=== PATIENT | male | born 1945 | race Caucasian/White ===

== ENCOUNTER → 2021-06-27 | Outpatient (CLI) | payer OTHER, MEDICARE ==
[~2021-06-27] VITALS: Ht 180.3 cm; Wt 86.2 kg
[~2021-06-27] MED LIST: ADVIL200 M3 PO; AMBIEN 5 MG TABL5 M1 PO; ANCEF 1GM1 GM/50 M1 IVPB; ATORVASTATIN CA40 MG PO; CARVEDILOL25 MG PO; COREG6.25 MG PO; COUMADIN 2 MG TA2 M1 PO; COZAAR 25 MG TA25 M2 PO; GLIPIZIDE ER10 MG PO; GLIPIZIDE ER5 MG PO; KEFLEX500 MG PO; LASIX 20 MG TAB20 MG PO; LEVEMIR SUBQ; NOVOLOG100 UNIT/1 SUBQ; ONDANSETRON HCL4 M2 PO; POTASSIUM20 PO; PRINIVIL5 MG PO; PROTONIX40 M1 PO; SODIUM CHLORID IV; SODIUM CHLORIDE50 M1 IVPB; SPIRONOLACTONE25 M1 PO; TEARS NATURALE1 EACH OPHTHALMIC; TYLENOL325 MG PO; ULTRAM 50MG TAB50 MG PO; XARELTO20 MG PO
[2021-06-27 09:52] LABS: CALCIUM 8.4 mg/dL (8.5-10.1); CREATININE 1.2 mg/dL (0.7-1.3); POTASSIUM 4.6 mmol/L (3.5-5.1)
[2021-06-27 10:08] VITALS: BP 135/90
--- NOTE | 2021-06-27 12:36 | EKG ---
[place] [address] [facility] [employer] [place] [address] ELECTROCARDIOGRAM REPORT Name: LAC DU FLAMBEAU,TUYET Lorenzo Room #: REG [facility]#: [id number] Admission: 06/27/21 Attend Phys: Antoine Javed MD Discharge: Date of : 43 Report #: [id number] [facility] Test Date: 2021-06-27 Test Time: 09:41:34 Pat Name: TUYET VAN Department: Room: Gender: M Certified Phlebotomist: ASHLEY : 1945 Requested By: Antoine Javed Order Number: [id number] : Nick Nava Measurements Intervals [place] Rate: 71 P: 75 NC: 173 QRS: -41 QRSD: 119 T: 94 QT: 372 QTc: 405 Interpretive Statements Sinus rhythm Atrial premature complex Nonspecific IVCD with LAD Anteroseptal infarct, old Nonspecific T abnormalities, lateral leads Artifact in lead(s) I,II,III,aVR,aVL,V1,V2,V3,V4,V5,V6 and baseline wander in lead(s) V2 Compared to ECG 01/04/2015 07:52:42 Atrial premature complex(es) now present Intraventricular conduction delay now present T-wave abnormality now present Atrial flutter no longer present Electronically Signed On 06-27-2021 12:36:06 CDT by Nick Nava [email or web address] <ELECTRONICALLY SIGNED> By: Nick Nava MD, [facility] 06/27/21 1236 Nick Nava MD, [facility] /EPI
[2021-06-27 14:09] LABS: CLARITY CLOUDY; TOTAL VOLUME 12 mL
[2021-06-27 14:10] LABS: CLARITY CLOUDY; TOTAL VOLUME 13 mL
[2021-06-27 14:49] LABS: BF NUCLEATED CELLS 8171 /mm3
[2021-06-27 14:56] LABS: BF NUCLEATED CELLS 6065 /mm3; BF RBC 18088 /mm3
[2021-06-27 16:02] LABS: BF MACROPHAGE 3 %; BF NEUTROPHILS 96 %
[2021-06-27 16:04] LABS: BF MACROPHAGE 9 %; BF NEUTROPHILS 90 %
== END | disposition home or self-care (01) ==
LOC: PUL 08:22 → OR 09:33 → EDSTATUS 11:49
PROVIDERS: ATTEND Pediatrics
DX: J18.9 Pneumonia, unspecified organism (principal); I10 Essential (primary) hypertension; I25.2 Old myocardial infarction; E11.9 Type 2 diabetes mellitus without complications; M19.90 Unspecified osteoarthritis, unspecified site; Z98.890 Other specified postprocedural states; Z79.899 Other long term (current) drug therapy; Z87.442 Personal history of urinary calculi; Z95.1 Presence of aortocoronary bypass graft; Z20.822 Contact with and (suspected) exposure to COVID-19
CPT/HCPCS: 50010; 62110; 62900; 70005

== ENCOUNTER 2021-10-22 19:12 | Inpatient (IN) | payer OTHER, MEDICARE ==
[~2021-10-22] VITALS: Ht 180.3 cm; Wt 60.3 kg
[~2021-10-22 19:12] MED LIST changes: +AZO D-MANNOSE500 MG PO; +BASAGLAR K100 UNIT/1 SUBQ; +VITAMIN D3250 MCG PO
[2021-10-22 19:26] VITALS: BP 91/54
--- NOTE | 2021-10-22 20:00 | NUR ---
Pt. arrived to the unit around 184 from [facility]. Keya WILKINS called and notified of admission. Pt. resting quietly in the bed and daughter at the bedside. Admission assessment and history is completed. Pt. has multiple open areas on both feet, but pt. refused to have the nurse picture them and assess them. Daughter in agreement because he just had them done earlier today. [place] to daughter and patient that it his policy that all wounds get assessed upon admission, but still refused. Bed alarm is on.
[2021-10-22 21:48] LABS: HEMATOCRIT 33.7 % (42.0-52.0); HEMOGLOBIN 10.4 gm/dL (14.0-18.0); MCHC 30.8 g/dL (28.0-37.0); MCV 81.3 fL (80.0-100.0); RBC 4.15 mil/uL (4.50-6.00); RDW 17.5 % (10.5-14.5)
[2021-10-22 21:59] LABS: CALCIUM 8.1 mg/dL (8.5-10.1); MAGNESIUM 1.6 mg/dL (1.8-2.4); POTASSIUM 4.1 mmol/L (3.5-5.1)
--- NOTE | 2021-10-23 04:31 | NUR ---
Pt. rested quietly at intervals during the night when checked on during frequent rounds. He was given tylenol (see emar) for c/o bilateral feet pain with some relief noted. Incontinent of stool and abigail care given. He was turned and repositioned. Bed alarm is on.
[2021-10-23 04:53] VITALS: BP 126/40
[2021-10-23 05:21] LABS: HEMATOCRIT 24.4 % (42.0-52.0); MCH 25.4 pg (26.0-34.0); MCHC 31.9 g/dL (28.0-37.0); MCV 79.5 fL (80.0-100.0); RBC 3.07 mil/uL (4.50-6.00); RDW 17.4 % (10.5-14.5); WBC 6.6 thou/uL (4.0-11.0)
[2021-10-23 05:29] LABS: HEMOGLOBIN 7.8 gm/dL (14.0-18.0)
[2021-10-23 05:38] LABS: CALCIUM 8.1 mg/dL (8.5-10.1); CREATININE 0.8 mg/dL (0.7-1.3); POTASSIUM 3.6 mmol/L (3.5-5.1)
[2021-10-23 07:18] VITALS: BP 91/51
[2021-10-23 08:53] LABS: HEMATOCRIT 29.6 % (42.0-52.0); HEMOGLOBIN 9.3 gm/dL (14.0-18.0)
--- NOTE | 2021-10-23 09:59 | NUR ---
Assumed care of pt at 0700. Pt a&ox4. Hg drop to 7.8 overnight. Provider notified. Another blood draw ordered. Hg 9.3. IV antibiotics infusing. Calixto catheter in place. Per night RN, pt's daughter refuses pt wound care in the hospital. Call light within reach. Fall precautions in place. Will continue to monitor.
--- NOTE | 2021-10-23 11:00 | NUR ---
76-year-old male who is a direct admission from [facility] for mycobacterial pneumonia. He was being followed by pulmonary with Dr. De Jesus and Dr. Costa from infectious disease. history of diabetes, hypertension, COPD, cerebral palsy, coronary artery disease, ischemic cardiomyopathy, apical thrombus of the left ventricle, kidney stones, GERD, COVID-19 infection, peripheral vascular disease, myocardial infarction, hyperlipidemia, failure to thrive, urosepsis and osteoarthritis. past surgical history: Cataract extraction, tonsillectomy, coronary artery bypass grafting, reports his vision is not good before and after cataract surgery Cm visited with Martinez and his daughter Omayra at bedside. He is using oxygen here and does not have home oxygen. He lives at home with his and his son with down syndrome. He has been declining since , son and Martinez go covid. Been weaker at home. he used to be able to get up, get into his wheelchair and got to kitchen fix food in the microwave or in oven but he cannot do that recently. They have a ramp. Have wheelchair van. Live [place] farm outside of [facility]. Plan is to go live with his daughter Geovanni who is redoing the house to handicap accessible, eventually all 3 will move in with her. [address] [place] [address], # [phone]. Barbara nelson is in between [place] and [place]. Per bedside nurse he is going to get picc line and will need iv abx at home. Both of his daughter feels comfortable doing iv abx for him at home if needs. Discussed with attending Neoyiciyanira, will have to see what ABX are needed by SOBEIDA LOYD. Will cont. following as needed.
[2021-10-23 11:47] VITALS: BP 107/57
--- NOTE | 2021-10-23 13:31 | NUR ---
Pt consistently coughing during conversation, may want to consider ordering swallow eval by ST to determine any possible aspiration risk
[2021-10-23 15:30] VITALS: BP 102/69
[2021-10-23 19:25] VITALS: BP 131/65
--- NOTE | 2021-10-23 19:36 | NUR ---
VASCULAR ACCESS CONSULT FOR PICC PLACEMENT FOR PRISON ANTIBIOTICS PER DR ELAM. CONSENT SIGNED AND TIME OUT PREFORMED PRIOR TO START WITH CARLOS LUNA. 4 FR SINGLE LUMEN PICC TO RIGHT UPPER ARM PLACED WITHOUT DIFFICULTY. PATIENT TOLERATED WELL. GUIDEWIRE REMOVED INTACT. TIP CONFIRMATION WITH ECG TECHNOLOGY. TRIMMED TO 41CM WITH 0CM EXT. OKAY TO USE PICC.
--- NOTE | 2021-10-23 20:47 | HC ---
[facility] [address] [place] [address] CONSULTATION Name: TUYET VAN Room #: 434-P ADM IN M.R.#: [id number] Admission: 10/22/21 Attend Phys: Grant Ball MD Discharge: Date of : 43 Report #: [id number] THIS REPORT FOR: cc: Ibrahima Pettit James L. DO Geha, Daniel J. MD ~ DATE OF SERVICE: 10/22/2021 INFECTIOUS DISEASE CONSULTATION REASON FOR CONSULTATION: I was asked to evaluate concerning bilateral pulmonary infiltrates and Mycobacterium abscessus pulmonary infection. HISTORY OF PRESENT ILLNESS: The patient is a 76-year-old, underlying cerebral palsy, diabetes, bronchiectasis, who has had persistent cough, which has progressed over the last 2 years. He was diagnosed with COVID-19 pneumonia in 09/2020. 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 He was seen on 09/10/2021 in the outpatient clinic. I was awaiting sensitivity results before embarking on any antibiotic therapy. He has had progressive decline with a cough of garnica sputum and progressive shortness of breath. He is fairly debilitated and unable to walk on his own. He spends most of the time in his wheelchair. He has subsequently developed pressure sores to his feet and his coccyx. Pulmonary function tests have also identified restrictive lung disease and CT scan of the chest has shown bilateral interstitial and nodular infiltrates in association with bronchiectasis. This has progressed. The Mycobacterium abscessus was identified from bronchoscopy in June of this year. Culture results have taken months to further identify and then obtain sensitivities. Multiple calls have been made to laboratory to continue to work up. Sensitivity results were finally reported out on the of this month. He was hospitalized at [facility] for further respiratory decline and weakness. He was started on broad antibiotic coverage. I discussed the case with Pulmonary Medicine and with attending physician. Plan was to transfer to [facility] for further antibiotic therapy. REVIEW OF SYSTEMS: He has had progressive weight loss. Malnutrition with development of skin ulcers. This past week, he had arterial studies of the lower extremities. I am awaiting results. His cerebral palsy has been stable. He has had poor appetite. He has urinary incontinence issues. Diabetic control has been stable. He has peripheral neuropathy. Other 14-point review of system was negative other than what has been described above. PAST MEDICAL HISTORY: Congestive heart failure, coronary artery disease, diabetic neuropathy, diabetes, gastroesophageal reflux, nephrolithiasis, osteoarthritis, peripheral vascular disease, spastic cerebral palsy, back surgery, coronary artery bypass grafting. [facility] [address] [place] [address] CONSULTATION Name: TUYET VAN Room #: 434-[facility] IN M.R.#: [id number] Admission: 10/22/21 Attend Phys: Grant Ball MD Discharge: Date of : 43 Report #: [id number] FAMILY HISTORY: Cancer, diabetes, stroke. SOCIAL HISTORY: Nonsmoker, no significant alcohol intake. ALLERGIES: HYDROCODONE. MEDICATIONS: As noted on his MAR, which was reviewed. PHYSICAL EXAMINATION: GENERAL: He is afebrile and hemodynamically stable. He is alert and cooperative. He had evidence of cerebral palsy. He had generalized weakness. He had multiple pressure wounds to his feet as well as to his coccyx. He was thin and appeared malnourished. No palpable adenopathy. HEENT: Eyes without scleral icterus and mouth without mucositis. NECK: Supple. LUNGS: Crackles in the bases, right greater than left. HEART: Regular, without murmur. ABDOMEN: Soft, nontender with no hepatosplenomegaly or mass. External genitalia without mass or lesion. RECTAL: Not performed. EXTREMITIES: Without clubbing, cyanosis or edema. He had multiple ulcerations over the feet. Could not palpate any pulses in his feet. He did have normal capillary refill in his extremities. NEUROLOGIC: He was hard of hearing, with a hearing aid on the left. Cerebral palsy changes. He was alert, without anxiety. LABORATORY DATA: Reviewed. Previous x-rays and CT scan reviewed. IMPRESSION: A 76-year-old with: 1. 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 2. Multiple pressure wounds to his coccyx and feet. This is in the setting of malnutrition and underlying peripheral vascular disease. 3. Diabetes with neuropathy. 4. Ischemic cardiomyopathy. 5. Cerebral palsy. RECOMMENDATION: Due to the patient's progression, we will need combination antibiotic therapy. Organism is resistant to clarithromycin, which will make this even more complicated. He will need multiple IV and oral antibiotics in combination. He has underlying cardiac disease, diabetes and he is hard of hearing and is at risk for further complications due to this complex program. I have discussed this with Pulmonary Medicine, the patient and his family, who are [address] [place] [address] CONSULTATION Name: TUYET VAN Room #: 434-P [facility] IN M.R.#: [id number] Admission: 10/22/21 Attend Phys: Grant Ball MD Discharge: Date of : 43 Report #: [id number] in agreement to begin therapy and assess his tolerance. We will follow serial laboratory studies, audiology testing and serial chest imaging. <ELECTRONICALLY SIGNED> By: Jamey Costa MD 10/23/21 2047 2217 0550 Jamey Costa MD /nt
[2021-10-24 00:54] VITALS: BP 113/77
[2021-10-24 02:06] LABS: GLYCOHEMOGLOBIN (HGB A1C) 6.4 % (4.8-5.6)
--- NOTE | 2021-10-24 04:50 | NUR ---
Pt. rested quietly during the night when checked on during frequent rounds. He offers no complaints of pain. Bed alarm is on.
[2021-10-24 05:40] VITALS: BP 125/51
[2021-10-24 07:41] VITALS: BP 129/72
--- NOTE | 2021-10-24 09:30 | NUR ---
Assumed care of pt at 0700. Pt a&ox4. [place]. Dressings c/d/i. Calixto catheter in place. Denies pain. PICC line in place. Family at bedside. Call light within reach. Fall precautions in place. Will continue to monitor.
--- NOTE | 2021-10-24 10:48 | NUR ---
referral sent to [facility] infusion to check for benefits.
[2021-10-24 11:08] VITALS: BP 103/52
[2021-10-24 15:35] VITALS: BP 96/63
--- NOTE | 2021-10-24 17:04 | NUR ---
Spoke with dtr at bedside and patients . Spoke with Maria Alejandra who reports copay for medication if doing all varies tigecycline is $650 copday, Spoke Cefoxitin is $250 copay this is not including supply cost. Sp with family discussed options for post acute care. They reports Dr Costa had also mentioned post acute care. Gave skilled list for review. Referral to [facility]. patient is not vaccinated. Discussed with Ashly in admissions. She reports if patient not vaccinated will need private room. Then need to [facility] for 14 days. They have no private rooms avail so declined acceptance. Updated family also sp with [facility], [facility], [facility], [facility] who is all full and cannot accept new patients for home health care. [facility] in process of evaluation. Gave skilled list to cont to review. hopeful patient accepted to [facility].
[2021-10-24 20:23] VITALS: BP 114/75
[2021-10-25 00:15] VITALS: BP 145/54
--- NOTE | 2021-10-25 04:12 | NUR ---
Pt. rested quietly during the night when checked on during frequent rounds. He did c/o bilateral feet pain and po tylenol given (see emar) with some relief noted. Bed alarm is on.
[2021-10-25 05:26] LABS: ABSOLUTE NEUTROPHILS 5.2 thou/uL (1.4-8.2); BASOPHILS 0.8 % (0.0-2.0); EOSINOPHILS 3.5 % (0.0-3.0); HEMATOCRIT 30.5 % (42.0-52.0); HEMOGLOBIN 9.7 gm/dL (14.0-18.0); LYMPHOCYTES 11.3 % (24.0-44.0); MCH 25.3 pg (26.0-34.0); MCHC 31.8 g/dL (28.0-37.0); MCV 79.5 fL (80.0-100.0); MONOCYTES 5.6 % (1.0-8.0); PLATELET COUNT 235 thou/uL (150-400); POLYS 78.8 % (36.0-66.0); RBC 3.84 mil/uL (4.50-6.00); RDW 17.8 % (10.5-14.5); WBC 6.6 thou/uL (4.0-11.0)
[2021-10-25 05:32] LABS: ALBUMIN 1.7 g/dL (3.4-5.0); CALCIUM 7.5 mg/dL (8.5-10.1); CREATININE 1.5 mg/dL (0.7-1.3); POTASSIUM 3.8 mmol/L (3.5-5.1); TOTAL BILIRUBIN 0.4 mg/dL (0.2-1.0); TOTAL PROTEIN 4.8 g/dL (6.4-8.2)
[2021-10-25 06:19] VITALS: BP 121/64
[2021-10-25 07:49] VITALS: BP 108/73
--- NOTE | 2021-10-25 09:04 | NUR ---
Pt eating very poorly less than 30% of meals and has stage III PU with bilateral diabetic foot ulcers. Severe protein calorie malnutrition Recommendations: consider ordering ST eval for swallowing recommend vitamin C and zinc sulfate supplementation recommend obtain B12 and folate labs
[2021-10-25 11:47] VITALS: BP 122/67
--- NOTE | 2021-10-25 14:35 | NUR ---
ASSUMED PT CARE THIS AM. PT A&OX4, ABLE TO MAKE NEEDS KNOWN. PATIENT REPORTING NO PAIN. WOUND DRESSING CHANGED TO BILATERAL FEET BY DAUGHTER THIS SHIFT. PATIENT AMBULATORY TO CHAIR WITH ASSIST OF PHYSICAL THERAPIST. PATIENT [id number] ALL MEDICATION WITHOUT ISSUE. FALL PRECAUTIONS ARE IN PLACE, CALL LIGHT WITHIN REACH. IV REMIANS PATENT, FLUIDS INFUSING.
[2021-10-25 15:43] VITALS: BP 98/63
[2021-10-25 21:33] LABS: CALCIUM 7.5 mg/dL (8.5-10.1); CREATININE 1.1 mg/dL (0.7-1.3); POTASSIUM 4.2 mmol/L (3.5-5.1)
--- NOTE | 2021-10-26 05:15 | NUR ---
ASSUMED PT CARE AT AROUND 1915 HRS. PT OBSERVED AWAKE AND ALERT. FAMILY IN ROOM. DENIES PAIN. REQUIRES REPOSITIONING. CBARRIER CRM APPLIED TO COCCYX. ON ROOM AIR-NO DISTRESS NOTED.
[2021-10-26 05:59] LABS: CALCIUM 7.7 mg/dL (8.5-10.1); POTASSIUM 3.8 mmol/L (3.5-5.1)
[2021-10-26 07:17] VITALS: BP 113/66
--- NOTE | 2021-10-26 09:38 | NUR ---
Assumed care of pt at 0700. Pt a&ox3. Denies pain. Dressings c/d/i. RA. Calixto catheter in place. IVF and IV antibiotics infusing. Family at bedside. Call light within reach. Fall precautions in place. Will continue to monitor.
[2021-10-26 16:12] VITALS: BP 113/64
[2021-10-26 19:19] VITALS: BP 106/62
[2021-10-27 00:36] VITALS: BP 120/64
--- NOTE | 2021-10-27 04:04 | NUR ---
patient aox4 makes needs known. patient is jena. no cough or shortness of air noted. dressings on right and left foot are c/d/i.fall precaution in place. patient in bed asleep at this time breathing regular and unlabboured.
[2021-10-27 05:25] VITALS: BP 108/59
[2021-10-27 06:46] LABS: CALCIUM 7.6 mg/dL (8.5-10.1); CREATININE 1.3 mg/dL (0.7-1.3); POTASSIUM 3.8 mmol/L (3.5-5.1)
[2021-10-27 07:00] VITALS: BP 103/41
--- NOTE | 2021-10-27 08:47 | NUR ---
Assumed care of pt at 0700. Pt a&o3-4. Denies pain. IVF and IV antibiotics infusing. Calixto catheter in place. Dressings c/d/i. Call light within reach. Fall precautions in place. Will continue to monitor.
[2021-10-27 11:00] VITALS: BP 109/62
[2021-10-27 18:54] VITALS: BP 113/68
[2021-10-28 04:14] VITALS: BP 151/90
--- NOTE | 2021-10-28 04:55 | NUR ---
PT LYING IN BED. DENIES PAIN. CALL LIGHT WITHIN REACH. NO NEEDS VOICED. FREQUENT OBSERVATION.
[2021-10-28 06:56] LABS: CALCIUM 7.7 mg/dL (8.5-10.1); CREATININE 1.5 mg/dL (0.7-1.3)
--- NOTE | 2021-10-28 07:12 | EKG ---
[address] [address] ELECTROCARDIOGRAM REPORT Name: TUYET VAN Room #: 434-P ADM IN M.R.#: [id number] Admission: 10/22/21 Attend Phys: Marilyn Nayak MD Discharge: Date of : 43 Report #: [id number] [facility] Test Date: 2021-10-24 Test Time: 16:16:52 Pat Name: TUYET VAN Department: Room: 434 P Gender: M Automobile Service Advisor: JEF : 1945 Requested By: Marilyn Nayak Order Number: [id number] MD: Nick Nava Measurements Intervals [place] Rate: 84 P: 72 SC: 175 QRS: -41 QRSD: 119 T: QT: 382 QTc: 452 Interpretive Statements Sinus rhythm Nonspecific IVCD with LAD Baseline wander in lead(s) V3,V4 Compared to ECG 06/27/2021 09:41:34 Atrial premature complex(es) no longer present T-wave abnormality no longer present Electronically Signed On 10-28-2021 7:12:26 EXTRA GANG SUPERVISOR by Nick Nava [email or web address] <ELECTRONICALLY SIGNED> By: Nick Nava MD, FACC 10/28/21 0712 1616 1616 Nick Nava MD, FAC /EPI
[2021-10-28 08:15] VITALS: BP 119/73
[2021-10-28 08:59] LABS: % SATURATION 133 % (20-39); IRON 76 ug/dL (65-175); TIBC 57 ug/dL (250-450)
[2021-10-28 09:26] LABS: FOLIC ACID 6.5 ng/mL (8.6-58.9)
--- NOTE | 2021-10-28 09:38 | NUR ---
Assumed care of pt at 0700. Pt a&ox3-4. Denies pain. Set-up for breakfast. IVF and IV antibiotics infusing. Q2h turn. RA. Calixto catheter in place. MI'KMAQ. Call light within reach. Fall precautions in place. WIll continue to monitor.
[2021-10-28 11:56] VITALS: BP 100/63
--- NOTE | 2021-10-28 14:30 | NUR ---
AIRCRAFT GENERAL REPAIR MECHANIC provided updates and cm spoke with his daughter sheba. referral sent to [facility] # [phone], fax # [phone]. Cont on IV abx, has wound care.
--- NOTE | 2021-10-28 14:38 | NUR ---
CONTINUING TO FOLLOW PT FOR [facility] ADMISSION WITH REQUIREMENT THAT PT HAS A FINANCIALLY VIABLE PLAN FOR ANTIBIOTICS AT HOME AFTER A TWO WEEK REHAB STAY. UNABLE TO DETERMINE ADEQUATE DISCHARGE PLAN AT THIS TIME
[2021-10-28 20:37] VITALS: BP 124/79
--- NOTE | 2021-10-29 05:48 | NUR ---
Pt. rested quietly during the night when checked on during frequent rounds. Po tylenol given for c/o bilateral feet pain (see emar) with some relief noted. Bed alarm is on.
[2021-10-29 05:52] LABS: ABSOLUTE NEUTROPHILS 3.9 thou/uL (1.4-8.2); BASOPHILS 1.4 % (0.0-2.0); EOSINOPHILS 6.2 % (0.0-3.0); HEMATOCRIT 31.8 % (42.0-52.0); HEMOGLOBIN 10.4 gm/dL (14.0-18.0); LYMPHOCYTES 15.4 % (24.0-44.0); MCHC 32.6 g/dL (28.0-37.0); MCV 79.9 fL (80.0-100.0); MONOCYTES 6.2 % (1.0-8.0); PLATELET COUNT 203 thou/uL (150-400); POLYS 70.8 % (36.0-66.0); RBC 3.98 mil/uL (4.50-6.00); RDW 18.8 % (10.5-14.5); WBC 5.5 thou/uL (4.0-11.0)
[2021-10-29 06:21] LABS: CREATININE 1.4 mg/dL (0.7-1.3); MAGNESIUM 1.6 mg/dL (1.8-2.4)
[2021-10-29 07:00] VITALS: BP 109/52
[2021-10-29 11:06] VITALS: BP 129/54
--- NOTE | 2021-10-29 15:40 | NUR ---
cm called [facility] to check and see if abdelrahman layne and osman bess had reviewed the referral that was sent over yesterday afternoon. [facility] # [phone], fax # [phone]. Spoke with maria alejandra who reported roverto not here to day and she will review referral and call cm back. Will cont following as needed.
[2021-10-29 15:51] VITALS: BP 117/64
--- NOTE | 2021-10-29 16:59 | NUR ---
PATIENT CARER RESUMMED; PATIENT LOCATED IN BED LYING IN A LOWFOWLERS POSITION WITH HEELS FLOATED; PATIENT HAS BEEN CALM, COOPERATIVE AND PLEASENT THROUGHOUT THE DAY; DRESSINGS TO MARIANA. LOWER EXTREMITIES THAT ARE D/C/I; WOUND CARE PROVIDED BY WOUND CARE TEAM; VSS AT PATIENT BASELINE; PATIENT HAS NAM INPLACE, WHICH WAS FLUSHED WITHOUT COMPLICATION; RIGHT UPPER ARM PICC, DRSG D/C/I WITH N/S@50HR; COCCYX IS RED, ZGUARD WAS APPLIED; FALL PRECAUTIONS ARE IN PLACE, CALL LIGHT WITHIN REACH; PATIENTS DTR AT BEDSIDE THROUGHOUT THE DAY;
[2021-10-29 19:21] VITALS: BP 115/63
--- NOTE | 2021-10-30 01:38 | NUR ---
PT ALERT AND ORIENTED X 4. IV INFUSING ORDERED. NAM PATENT DRAINING YELLOW URINE. BLOOD SUGAR 53 AT 2119. APPLE JUICE GIVEN. BS 54 AT 2137. ORANGE JUICE GIVEN. BS 57 AT 2203. 12.5 GM D50 GIVEN AT 2222. BLOOD SUGAR 97 AT 2245. SOME OF THESE BLOOD SUGARS WERE CHECKED WITH PTS GLUCOSE MONITOR IN HIS ARM. HE WOULD NOT ALLOW FINGERSTICKS EVERY TIME. PT C/O PAIN IN HIS LEGS. TYLENOL GIVEN ORDERED. PT TAKES MEDS WHOLE WITH WATER WITHOUT DIFFICULTY. BED ALARM ON FOR SAFETY. PT CHECKED ON HOURLY ROUNDS.
[2021-10-30 06:53] LABS: CALCIUM 7.9 mg/dL (8.5-10.1); CREATININE 1.5 mg/dL (0.7-1.3); POTASSIUM 4.1 mmol/L (3.5-5.1)
[2021-10-30 07:00] VITALS: BP 114/58
[2021-10-30 16:00] VITALS: BP 122/62
--- NOTE | 2021-10-30 16:37 | NUR ---
Spoke with via phone and she notes dtr Hallie here with the pt at bedside. Both updated on current search for snf near pt's home or dtrs home that could take the pt for iv atb 4-6wks and wound care. Ranjit Corey still reviewing, Bob declined. [facility] in [facility] faxed clinical to Luanne in admissions to [facility] per family request. [facility] recontacted per request. Referral refaxed to them and they will reconsider. Referral faxed to [facility] at [facility]. Their licensed social worker Kristyn will look at the referral in the am and can be paged at [phone]. Awaiting response back from [facility] as well. All parties updated. Will f/u with Samira Swing [facility], [place], [facility], and [facility] in the am.
[2021-10-30 19:23] VITALS: BP 117/72
[2021-10-31 05:40] VITALS: BP 91/58
[2021-10-31 07:00] VITALS: BP 121/68
[2021-10-31 07:07] LABS: CALCIUM 7.9 mg/dL (8.5-10.1); CREATININE 1.6 mg/dL (0.7-1.3); POTASSIUM 4.1 mmol/L (3.5-5.1)
--- NOTE | 2021-10-31 07:53 | NUR ---
PT ASSESSMENT COMPLETED AND VSS. MEDS GIVEN ORDERED AND WELL TOLERATED. FALL PRECAUTIONS IN PLACE. IVF RUNNING. ASST WITH REPOSITION FOR COMFORT. NAM DRAINING DARK YELLOW URINE. BG CHECKED ORDERED. SLEEPING WELL. WILL CONTINUE TO MONITOR FREQUENTLY.
--- NOTE | 2021-10-31 09:19 | NUR ---
[facility] bed unable to accept. Fax[facility] referral [facility], [facility], [facility], and [facility]. Spoke with daughter sheba, going to have [facility] infusion to [facility] out cost of home iv abx again per family request.
--- NOTE | 2021-10-31 11:48 | NUR ---
ASSUMED PT CARE THIS AM. PT IS ALERT & ORIENTED X4 BUT ANIAK. PT AND PT DAUGHTER AT THE BEDSIDE. WAS ABOUT TO CHANGE WOUND DRESSING BUT INFORMED ME TO AWAIT FOR WOUND NURSE TO DO INSTEAD. PT IS WHEELCHAIR BOUND. GIVEN MEDICATIONS SCHEDULED AND ORDERED WITHOUT DIFFICULTIES. PT IS ACCUCHECK ACHS. PT HAS TELE MONITOR ON. PT IS INCONTINENT AND HAS NAM CATH IN PLACE. PT IS ON ROOM AIR. WILL DC TODAY PER CM.
[2021-10-31 12:24] VITALS: BP 111/66
[2021-10-31] MEDS ORDERED: AMIKACIN (500 MG/2 M IV (12:51)
[2021-10-31] MEDS ORDERED: CEFOXITIN2 GM IV (13:09)
[2021-10-31] MEDS ORDERED: AZITHROMYCIN 2250 MG PO (13:10)
[2021-10-31] MEDS ORDERED: TIGECYCLINE50 MG IV (13:12)
[2021-10-31] MEDS ORDERED: LINEZOLID600 MG PO (13:13)
[2021-10-31] MEDS ORDERED: NYSTATIN100000 UNI PO (13:23)
[2021-10-31] MEDS ORDERED: FOLIC ACID1 MG PO (13:26)
== END 2021-10-31 17:07 | DRG 193 ==
LOC: 4S 19:12
PROVIDERS: Nurse Practitioner; Nurse Practitioner Family; Specialist; ADMIT Hospitalist; ATTEND Hospitalist
PROC: 05HY33Z Insertion of Infusion Device into Upper Vein, Percutaneous Approach (ICD-10-PCS; principal; 2021-10-23)
DX: J15.7 Pneumonia due to Mycoplasma pneumoniae (principal); L89.153 Pressure ulcer of sacral region, stage 3; J96.01 Acute respiratory failure with hypoxia; E43 Unspecified severe protein-calorie malnutrition; J85.1 Abscess of lung with pneumonia; N17.9 Acute kidney failure, unspecified; J44.0 Chronic obstructive pulmonary disease with (acute) lower respiratory infection; G80.1 Spastic diplegic cerebral palsy; B37.0 Candidal stomatitis; Z68.1 Body mass index [BMI] 19.9 or less, adult; I25.5 Ischemic cardiomyopathy; E83.42 Hypomagnesemia; R62.7 Adult failure to thrive; I10 Essential (primary) hypertension; I25.10 Atherosclerotic heart disease of native coronary artery without angina pectoris; E11.51 Type 2 diabetes mellitus with diabetic peripheral angiopathy without gangrene; E11.40 Type 2 diabetes mellitus with diabetic neuropathy, unspecified; I95.9 Hypotension, unspecified; E11.622 Type 2 diabetes mellitus with other skin ulcer; L97.519 Non-pressure chronic ulcer of other part of right foot with unspecified severity; A31.0 Pulmonary mycobacterial infection; R53.81 Other malaise; D63.8 Anemia in other chronic diseases classified elsewhere; E53.8 Deficiency of other specified B group vitamins; E78.5 Hyperlipidemia, unspecified; Z20.822 Contact with and (suspected) exposure to COVID-19; M19.90 Unspecified osteoarthritis, unspecified site; K21.9 Gastro-esophageal reflux disease without esophagitis; Z87.442 Personal history of urinary calculi; I25.2 Old myocardial infarction; Z95.1 Presence of aortocoronary bypass graft; Z83.3 Family history of diabetes mellitus; Z83.79 Family history of other diseases of the digestive system; Z82.3 Family history of stroke; Z86.16 Personal history of COVID-19; Z79.4 Long term (current) use of insulin; Z98.42 Cataract extraction status, left eye; Z98.41 Cataract extraction status, right eye; Z99.3 Dependence on wheelchair
CPT/HCPCS: 10100